=== PATIENT | male | born 1955 | race Caucasian/White ===

== ENCOUNTER 2016-10-13 21:46 | Emergency (ER) | payer OTHER ==
[2016-10-13 21:53] VITALS: BP 120/66
--- NOTE | 2016-10-13 22:02 | ED Physician Documentation ---
PD HPI LOWER EXT INJURY - Stated complaint Stated Complaint: R KNEE PX - Chief complaint Chief Complaint: Ext Problem - History obtained from History obtained from: Patient - History of Present Illness PD HPI LOW EXT INJURY LOCATION: Right (Relatively healthy 61-year-old gentleman up-to-date on tetanus had a ground-level fall onto his knee today and now has large anterior right knee swelling. He also has a scrape over the dorsum of the right hand that is not painful.) Review of Systems Constitutional: reports: Reviewed and negative Nose: reports: Reviewed and negative Throat: reports: Reviewed and negative PD PAST MEDICAL HISTORY - Present Medications Home Medications: Ambulatory Orders Medication Instructions Recorded Confirmed Losartan [Cozaar] 25 mg PO DAILY 10/13/16 10/13/16 Omeprazole [PriLOSEC] 20 mg PO DAILY 10/13/16 10/13/16 Simvastatin [Zocor] 40 mg PO 10/13/16 10/13/16 Tamsulosin [Flomax] 0.4 mg PO DAILY 10/13/16 10/13/16 amLODIPine [Norvasc] 5 mg PO DAILY 10/13/16 10/13/16 - Allergies Allergies/Adverse Reactions: Allergies Allergy/AdvReac Type Severity Reaction Status Date / Time Penicillins Allergy Unknown Verified 10/13/16 21:53 PD ED PE NORMAL - Vitals Vital signs reviewed: Yes - General General: Alert and oriented X 3, No acute distress - Neck Neck: Supple, no meningeal sign, No bony TTP - Extremities Extremities: Other (Right knee has a very impressive amount of bleeding into the prepatellar bursa but really no tenderness or limited range of motion.) - Neuro Neuro: Alert and oriented X 3, Normal speech - Psych Psych: Normal mood, Normal affect Results - Vitals Vitals: Vital Signs - 24 hr 10/13/16 21:51 Temperature 36.8 C Heart Rate 68 Respiratory 14 Rate Blood Pressure 120/66 O2 Saturation 98 Oxygen O2 Source Room air - Rads (name of study) 4 views of right knee Radiology: EMP read contemporaneously (soft tissue swelling, no fracture) PD MEDICAL DECISION MAKING - ED course ED course: We discussed potentially doing an incision and drainage of a large hematoma in his prepatellar bursa, after the discussion of pros and cons he declined and preferred to use an Kristian wrap instead. Departure - Departure Disposition: Home, Self Care Clinical Impression: Hemorrhagic prepatellar bursitis Qualifiers: Laterality: right Qualified Code(s): M70.41 - Prepatellar bursitis, right knee Condition: Good Record reviewed to determine appropriate education?: Yes Instructions: ED Bursitis Follow-Up: [facility] [Provider Group] Comments: Tylenol as needed for pain. Follow up in the orthopedics clinic in one week. Keep it wrapped as shown. Discharge Date/Time: 10/13/16 22:52
--- NOTE | 2016-10-13 22:48 | XRAY Preliminary Report ---
Exam: XR Knee 4 View RT IMPRESSION: 1. Soft tissue swelling. No acute fracture or dislocation seen. [facility] SITE ID: [id number]
--- NOTE | 2016-10-13 22:50 | XRAY Report ---
EXAM: Right Knee Radiography EXAM DATE: 10/13/2016 10:29 PM. CLINICAL HISTORY: Knee pain after injury. Prepatellar bleeding. COMPARISON: None. TECHNIQUE: 4 views. FINDINGS: Bones: No acute fracture seen. Joints: No dislocation. Possible slight joint space narrowing in the medial compartment. Minimal if a ny joint effusion. Soft Tissues: Marked soft tissue swelling. IMPRESSION: 1. Soft tissue swelling. No acute fracture or dislocation seen. [facility] Referring Provider Line: [phone] SITE ID: [id number]
== END 2016-10-13 22:52 | disposition home or self-care (01) ==
LOC: ED 21:46
DX: M70.41 Prepatellar bursitis, right knee (principal); S80.01XA Contusion of right knee, initial encounter; W01.0XXA Fall on same level from slipping, tripping and stumbling without subsequent striking against object, initial encounter
CPT/HCPCS: 99283

== ENCOUNTER 2016-11-15 08:22 | Outpatient (CLI) | payer OTHER | END 2016-11-15 08:23 | disposition home or self-care (01) | DX: I10 Essential (primary) hypertension (principal); E78.5 Hyperlipidemia, unspecified; R73.01 Impaired fasting glucose; R31.29 Other microscopic hematuria; Z12.5 Encounter for screening for malignant neoplasm of prostate ==

== ENCOUNTER 2017-03-13 11:30 | Outpatient (CLI) | payer OTHER ==
[2017-03-13 19:14] LABS: BASOPHILS # (AUTO) 0.1 10^3/uL (0.0-0.1); BASOPHILS % (AUTO) 1.5 %; EOSINOPHILS # (AUTO) 0.4 10^3/uL (0.0-0.7); EOSINOPHILS % (AUTO) 7.2 %; HCT - HEMATOCRIT 42.8 % (42.0-52.0); HGB - HEMOGLOBIN 14.4 g/dL (14.0-18.0); LYMPHOCYTES # (AUTO) 1.8 10^3/uL (1.5-3.5); LYMPHOCYTES % (AUTO) 28.8 %; MEAN CORPUSCULAR HEMOGLOBIN 32.2 pg (27.0-31.0); MEAN CORPUSCULAR HGB CONC 33.8 g/dL (32.0-36.0); MEAN CORPUSCULAR VOLUME 95.5 fL (80.0-94.0); MEAN PLATELET VOLUME 9.4 fL (7.4-11.4); MONOCYTES # (AUTO) 0.7 10^3/uL (0.0-1.0); MONOCYTES % (AUTO) 11.6 %; NEUTROPHILS # (AUTO) 3.2 10^3/uL (1.5-6.6); NEUTROPHILS % (AUTO) 50.9 %; NUCLEATED RED BLOOD CELLS AUTO 0.2 /100WBC; RED BLOOD COUNT 4.48 10^6/uL (4.70-6.10); UNCORRECTED WHITE BLOOD COUNT 6.2 x10^3/uL; WHITE BLOOD COUNT 6.2 x10^3/uL (4.8-10.8)
[2017-03-15 14:36] LABS: ANA SCREEN NEGATIVE (NEGATIVE)
== END 2017-03-13 11:31 | disposition home or self-care (01) ==
LOC: LAB.WCP 11:30
PROVIDERS: ATTEND Family Medicine
DX: L03.114 Cellulitis of left upper limb (principal)
CPT/HCPCS: 36415; 84550; 85025; 85651; 86038; 86140

== ENCOUNTER 2017-12-26 08:00 | Outpatient (CLI) | payer BC, OTHER ==
[2017-12-26 12:37] LABS: BASOPHILS # (AUTO) 0.1 10^3/uL (0.0-0.1); BASOPHILS % (AUTO) 1.3 %; EOSINOPHILS # (AUTO) 0.3 10^3/uL (0.0-0.7); EOSINOPHILS % (AUTO) 5.7 %; HGB - HEMOGLOBIN 15.3 g/dL (14.0-18.0); LYMPHOCYTES # (AUTO) 1.6 10^3/uL (1.5-3.5); LYMPHOCYTES % (AUTO) 27.8 %; MEAN CORPUSCULAR HEMOGLOBIN 32.4 pg (27.0-31.0); MEAN CORPUSCULAR HGB CONC 33.9 g/dL (32.0-36.0); MEAN CORPUSCULAR VOLUME 95.5 fL (80.0-94.0); MEAN PLATELET VOLUME 10.1 fL (7.4-11.4); MONOCYTES # (AUTO) 0.7 10^3/uL (0.0-1.0); MONOCYTES % (AUTO) 11.9 %; NEUTROPHILS # (AUTO) 3.1 10^3/uL (1.5-6.6); NEUTROPHILS % (AUTO) 53.3 %; PLT - PLATELET COUNT 172 10^3/uL (130-450); RED BLOOD COUNT 4.71 10^6/uL (4.70-6.10); RED CELL DISTRIBUTION WIDTH 13.3 % (12.0-15.0); WHITE BLOOD COUNT 5.7 x10^3/uL (4.8-10.8)
[2017-12-26 13:01] LABS: HB2 TOTAL 16.3 g/dL; HEMOGLOBIN A1C 0.64 g/dL; HEMOGLOBIN A1C % 5.7 % (4.6-6.2)
[2017-12-26 13:15] LABS: ALBUMIN 4.5 g/dL (3.2-5.5); ALBUMIN/GLOBULIN RATIO 1.6 (1.0-2.2); ALKALINE PHOSPHATASE 110 IU/L (42-121); ALT ALANINE AMINOTRANSFERASE 49 IU/L (10-60); AST ASPARTATE AMINOTRANSFERASE 47 IU/L (10-42); BILIRUBIN,TOTAL 0.8 mg/dL (0.2-1.0); BUN - BLOOD UREA NITROGEN 16 mg/dL (6-20); CALCIUM 9.1 mg/dL (8.5-10.3); CARBON DIOXIDE - CO2 26 mmol/L (21-32); CHLORIDE 102 mmol/L (101-111); CHOL/HDL RATIO 3.4 (<5.0); CHOLESTEROL 158 mg/dL; CREATININE 0.7 mg/dL (0.6-1.2); GFR - MDRD 115 (>89); GLUCOSE 97 mg/dL (70-100); HDL CHOLESTEROL 47 mg/dL; LDL CHOLESTEROL,CALCULATED 94 mg/dL; SODIUM 135 mmol/L (135-145); TOTAL PROTEIN 7.3 g/dL (6.7-8.2); VLDL CHOLESTEROL 17 mg/dL
== END 2017-12-26 08:01 | disposition home or self-care (01) ==
LOC: LAB.WCP 08:00
PROVIDERS: ATTEND Family Medicine
DX: I10 Essential (primary) hypertension (principal); E88.81 Metabolic syndrome and other insulin resistance; E78.5 Hyperlipidemia, unspecified
CPT/HCPCS: 36415; 80053; 80061; 83036; 83721; 84153; 84443; 85025

== ENCOUNTER 2018-02-18 07:47 | Day surgery (SDC) | payer OTHER ==
[2018-02-18] MEDS ORDERED: LACTATED RINGERS 1,000 ML IV ONE (08:26)
[2018-02-18] MEDS ORDERED: fentaNYL 250 MCG/5 ML VIAL IVP ONE (09:00)
[2018-02-18] MEDS ORDERED: MIDAZOLAM 2 MG/2 ML VIAL IVP ONE (09:00)
[2018-02-18 09:48] VITALS: BP 132/78
== END 2018-02-18 07:48 | disposition home or self-care (01) ==
LOC: SDS 07:47
PROVIDERS: ATTEND Surgery
PROC: 0DJD8ZZ Inspection of Lower Intestinal Tract, Via Natural or Artificial Opening Endoscopic (ICD-10-PCS; principal; 2018-02-18 09:00)
DX: Z12.11 Encounter for screening for malignant neoplasm of colon (principal); Z86.010 Personal history of colon polyps; K57.30 Diverticulosis of large intestine without perforation or abscess without bleeding; K64.8 Other hemorrhoids; I10 Essential (primary) hypertension; E78.5 Hyperlipidemia, unspecified; K21.9 Gastro-esophageal reflux disease without esophagitis
CPT/HCPCS: 45378; J7120